=== PATIENT | male | born 1945 | race Caucasian/White ===

== ENCOUNTER 2019-06-16 09:19 | Outpatient (CLI) | payer MEDICARE, OTHER ==
--- NOTE | 2019-06-16 14:10 | MRI ---
MRI CERVICAL SPINE WITHOUT CONTRAST: HISTORY: Cervical disc displacement, cervical fusion. COMPARISON: 07/30/2007. FINDINGS: Metallic susceptibility artifact secondary to an anterior fusion plate from C3 through C6. There is f usion of the disc spaces. Appropriate T1 marrow signal intensity in the visualized cervical and upper thoracic vertebrae. Visualized brain parenchyma, cervicomedullary junction, cervical cord and t he upper thoracic cord have a normal size and signal intensity. C2-C3: No significant central canal stenosis or significant neural foraminal narrowing. C3-C4: Broad-based osteophyte ridge abuts the thecal sac. Mild central canal stenosis. Bilaterally, n eural foramina are patent. C4-C5: Broad-based osteophyte ridge abuts the thecal sac. Mild deformity of the left hemicord. Mild t o moderate central canal stenosis. Right neural foramen is patent. Mild left foraminal narrowing due to uncovertebral hypertrophy. C5-C6: Broad-based osteophyte ridge abuts the thecal sac. There is a left paracentral component which mildly deforms the left hemicord. Mild to moderate stenosis of the left aspect of the central spinal canal. Mild bilateral foraminal narrowing due to uncovertebral hypertrophy. C6-C7: Broad-based osteophyte ridge abuts the thecal sac. Mild central canal stenosis. Mild to modera te right and mild left foraminal narrowing due to uncovertebral hypertrophy. C7-T1: Broad-based disc-osteophyte complex results in mild central canal stenosis. Mild bilateral bimal ral foraminal narrowing due to uncovertebral hypertrophy. IMPRESSION: 1. Cervical fusion from C3 to C6. 2. Degenerative changes in the cervical spine as described above. There are varying degrees of centr al canal stenosis and neural foraminal narrowing. Transcribed Date/Time: 06/16/2019 2:16 PM
== END 2019-06-16 09:20 | disposition home or self-care (01) ==
LOC: SCSMRI 09:19
PROVIDERS: ATTEND Psychiatry & Neurology Neurology
DX: M50.20 Other cervical disc displacement, unspecified cervical region (principal); M47.812 Spondylosis without myelopathy or radiculopathy, cervical region; M48.02 Spinal stenosis, cervical region; M48.03 Spinal stenosis, cervicothoracic region; Z98.1 Arthrodesis status
CPT/HCPCS: 72141

== ENCOUNTER 2022-03-14 08:35 | Outpatient (CLI) | payer MEDICARE, OTHER | END 2022-03-14 08:36 | disposition home or self-care (01) | LOC: MRI 08:35 | PROVIDERS: ATTEND Neurological Surgery | DX: M47.12 Other spondylosis with myelopathy, cervical region (principal); Z98.1 Arthrodesis status | CPT/HCPCS: 72141 ==